=== PATIENT | female | born 1955 | race African-American/Black ===

== ENCOUNTER 2017-04-03 22:39 | Emergency (ER) | payer OTHER ==
[~2017-04-03] VITALS: Ht 165.1 cm; Wt 114.3 kg
[2017-04-04] MEDS ORDERED: CLEOCIN HCL150 MG PO (03:15)
[2017-04-04] MEDS ORDERED: ALLEGRA ALLERG180 MG PO (03:15)
[2017-04-04 03:25] VITALS: BP 121/56
== END 2017-04-04 03:27 | disposition home or self-care (01) ==
LOC: ER 22:39
DX: L03.116 Cellulitis of left lower limb (principal); L03.115 Cellulitis of right lower limb; E11.9 Type 2 diabetes mellitus without complications; I10 Essential (primary) hypertension; E78.5 Hyperlipidemia, unspecified